=== PATIENT | female | born 1950 | race African-American/Black ===

== ENCOUNTER 2017-01-23 07:21 | Day surgery (SDC) | payer MEDICARE, OTHER ==
[2017-01-23] VITALS (11 sets, daily range): BP systolic 141–192; BP diastolic 55–76; PULSE 56–90; RESP 17–19; Ht 162.6 cm; Wt 124.0 kg
[~2017-01-23] VITALS: Ht 162.6 cm; Wt 124.0 kg
[2017-01-23] MEDS ORDERED: LISI10TA2 PO (09:11)
[2017-01-23] MEDS ORDERED: ALBU18HF INHALATION (09:12)
[2017-01-23] MEDS ORDERED: ASPI-664 PO (09:12)
[2017-01-23] MEDS ORDERED: NAPR-688 PO (09:13)
[2017-01-23] MEDS ORDERED: TRAM-40 PO (09:14)
--- NOTE | 2017-01-23 10:08 | RADRPT ---
PROCEDURE: Chest Radiograph. CLINICAL INDICATION: Preop TECHNIQUE: Single frontal chest radiograph. COMPARISON: None available FINDINGS: Heart size is within normal limits. Atherosclerotic calcifications are present. No infiltrate or effusion is seen. The bones are intact. IMPRESSION: 1. No evidence of acute cardiopulmonary disease. 2. Atherosclerotic vascular disease. RPTAT: KK .Darius Dooley MD, MD Date Time Electronically viewed and signed by .Darius Dooley MD, on 01/23/2017 10:07 .B/
[2017-01-23 10:11] LABS: ADD SCAN DIFF NO
[2017-01-23 10:16] LABS: BASOPHILS % 0.7 % (0.0-2.0); EOSINOPHILS # 0.3 10^3/ul (0.0-0.5); EOSINOPHILS % 5.6 % (0.0-7.0); HEMATOCRIT 40.1 % (37.0-47.0); HEMOGLOBIN 12.7 g/dl (12.0-16.0); LYMPHOCYTES # 1.8 10^3/ul (0.8-2.9); LYMPHOCYTES % 30.2 % (15.0-51.0); MEAN CORPUSCULAR HEMOGLOBIN 28.7 pg (29.0-33.0); MEAN CORPUSCULAR HGB CONC 31.7 g/dl (32.0-37.0); MEAN CORPUSCULAR VOLUME 90.5 fl (82.0-101.0); MEAN PLATELET VOLUME 10.9 fl (7.4-10.4); MONOCYTE # 0.4 10^3/ul (0.3-0.9); MONOCYTES % 7.3 % (0.0-11.0); NEUTROPHIL # 3.3 10^3/ul (1.6-7.5); NEUTROPHILS % 55.9 % (39.0-77.0); PLATELET COUNT 279 10^3/UL (140-415); RED BLOOD COUNT 4.43 10^6/ul (4.20-5.40); RED CELL DISTRIBUTION WIDTH 14.9 % (11.5-14.5); WHITE BLOOD COUNT 5.9 10^3/ul (4.8-10.8)
[2017-01-23 10:26] LABS: INR 0.87; PROTIME 11.8 Sec (12.2-14.2); PT RATIO 0.9
[2017-01-23] MEDS ORDERED: HEPARIN 1000 UNITS/ML 10 ML INJ ONE (10:26)
[2017-01-23] MEDS ORDERED: IODIXANOL LOCM 100 ML BTL ONE (10:26)
[2017-01-23] MEDS ORDERED: LIDOCAINE 1% (MDV) 20 ML INJ ONE (10:26)
[2017-01-23] MEDS ORDERED: HEPARIN 1000 UNITS/NS (A-LINE) 1,000 ML ONE (10:26)
[2017-01-23 10:27] LABS: PARTIAL THROMBOPLASTIN TIME 31.6 Sec (25.0-35.0)
[2017-01-23] MEDS ORDERED: NITROGLYCERIN (IC) 100 MCG/ML INJ ONE (10:27)
[2017-01-23] MEDS ORDERED: MIDAZOLAM 1 MG/ML 2 ML INJ ONE ×2 (10:27→14:14)
[2017-01-23] MEDS ORDERED: FENTAnyl 50 MCG/ML VIAL ONE ×2 (10:27→14:15)
[2017-01-23] MEDS ORDERED: VERAPAMIL 5 MG INJ ONE (10:27)
[2017-01-23 10:33] LABS: POTASSIUM 4.8 mmol/L (3.5-5.1)
[2017-01-23 10:38] LABS: CALCIUM 9.3 mg/dl (8.4-10.2); CREATININE 0.75 mg/dl (0.44-1.00)
[2017-01-23] MEDS ORDERED: SOD CHLORIDE 0.9% 1,000 ML IV SCH (12:00)
[2017-01-23] MEDS ORDERED: CEFAZOLIN 2 GM/50 ML (PMX) 50 ML IVPB ONE (12:00)
[2017-01-23] MEDS ORDERED: ISOSULFAN BLUE 1% 5 ML INJ SC ONE (14:05)
[2017-01-23] MEDS ORDERED: PROPOFOL 20 ML ONE (14:14)
[2017-01-23] MEDS ORDERED: METOCLOPRAMIDE 10 MG INJ ONE (14:14)
[2017-01-23] MEDS ORDERED: OXYCODONE/ACETAMINOPHEN (5/325) TAB PO PRN ×3 (15:00→18:00)
[2017-01-23] MEDS ORDERED: MEPERIDINE 25 MG INJ IV PRN (15:00)
[2017-01-23] MEDS ORDERED: DIPHENHYDRAMINE 50 MG INJ IV PRN (15:00)
[2017-01-23] MEDS ORDERED: METOCLOPRAMIDE 10 MG INJ IV PRN (15:00)
[2017-01-23] MEDS ORDERED: hydrALAzine 20 MG INJ IV PRN (15:00)
[2017-01-23] MEDS ORDERED: LABETALOL HCL 20MG INJ IV PRN (15:00)
[2017-01-23] MEDS ORDERED: ONDANSETRON 4 MG INJ IV PRN (15:00)
[2017-01-23] MEDS ORDERED: HYDROmorphONE (0.2 MG/ML) 10ML SYG IV PRN ×3 (15:00)
[2017-01-23] MEDS ORDERED: CEFAZOLIN 1 GM INJ ONE (15:06)
[2017-01-23] MEDS ORDERED: ONDANSETRON 4 MG INJ ONE (15:06)
[2017-01-23] MEDS ORDERED: hydrALAzine 20 MG INJ ONE (15:51)
--- NOTE | 2017-01-23 16:09 | OPR ---
DATE OF OPERATION: 01/23/2017 PREOPERATIVE DIAGNOSIS: Invasive cancer, left breast. POSTOPERATIVE DIAGNOSIS: Invasive cancer, left breast. OPERATION PERFORMED: Needle-directed left partial mastectomy and axillary dissection utilizing sent inel lymph node technique. ANESTHESIA: General. ANESTHESIOLOGIST:Siddhartha MD SURGEON: Bruno Robles MD METAL CEILING BUILDER: Armando Chowdhury MD INDICATIONS FOR PROCEDURE: The patient is a pleasant 66-year-old female who underwent surveillance mammography. She was found to have a suspicious lesion in the upper outer quadrant of her left mart[address]. Subsequent biopsy confirmed an invasive cancer. She was counseled as to risks versus benefits of partial mastectomy and sentinel lymph node biopsy. She consented and was scheduled for surgery. DESCRIPTION OF PROCEDURE: On the morning of surgery, the patient presented to [facility] where she underwent localization of the lesion performed by attending radiologi st, Dr. Mely Garcia. Subsequently, she was brought to the operating theater, placed under gener al anesthesia. The left breast and axillary regions were prepped and draped in the usual sterile fa shion. Approximately 4 mL of 1% Lymphazurin blue dye were then injected peritumorally. The breast was gently massaged for approximately 12 minutes. At this point, a 3 cm incision was made in the le ft axillary hairline. Subcutaneous tissue was dissected with cautery down through the clavipectoral fascia. A dye-stained lymphatic was identified and traced to a relatively enlarged lymph node. Th is node and several other lymph nodes in the area were then resected using the LigaSure device. Int raoperative analysis performed by attending pathologist, Dr. Jerry Herbert, did not reveal definit e evidence of metastatic disease. Therefore, the wound was irrigated and minimal bleeding was contr olled with cautery. The skin incision was then reapproximated with 4-0 Vicryl suture in subcuticula r fashion. Attention was then directed to performing the partial mastectomy. A curvilinear incision was made i n the upper outer quadrant near the previously placed localization wire. Subcutaneous tissue was di ssected with cautery. Skin edges were elevated with skin hooks and wide circumferential dissection of the tissue associated with the wire took place, taking great care to ensure adequate margin. Spe cimen was transected, oriented, and sent for radiographic confirmation of capture. Capture was conf irmed. Specimen was then sent for permanent pathologic analysis. The wound was irrigated. Minimal bleeding was controlled with cautery, and the skin was then reapproximated with 4-0 Vicryl suture i n subcuticular fashion. Benzoin and Steri-Strips were then applied to both wounds. The patient tabitha erated procedure well. Estimated blood loss was 20 mL. There were no complications and the patient was transported in stable condition to the recovery room where circumferential compression dressing was applied. Dictated By: BRUNO FLORES/TOPHER Conf#: [id number] DID#: [id number]
--- NOTE | 2017-01-24 20:57 | RADRPT ---
Vent Rate: 50 bpm RR Interval: 0 msec DE Interval: 160 msec QRS Duration: 76 msec QT Interval: 450 msec QTC Interval: 410 msec P-R-T Dike: 63 - 48 - 54 degrees Sinus bradycardia Otherwise normal ECG Electronically Signed By: Ba Montiel [id number]
== END 2017-01-23 18:16 | disposition home or self-care (01) ==
LOC: SDS 07:21
PROVIDERS: ATTEND Surgery Surgical Oncology
DX: C50.912 Malignant neoplasm of unspecified site of left female breast (principal); I10 Essential (primary) hypertension; E66.01 Morbid (severe) obesity due to excess calories; Z68.42 Body mass index [BMI] 45.0-49.9, adult
CPT/HCPCS: 19301; 38500; 38792; 71010; 80048; 85025; 85610; 85730; 88104; 88307; 93005; J0360; J0690; J1644; J2250; J2405; J2765; J3010; Q9967; Q9968

== ENCOUNTER 2017-03-13 15:30 | Emergency (ER) | payer MEDICARE, OTHER ==
[~2017-03-13] VITALS: Wt 121.0 kg
[~2017-03-13 15:30] MED LIST: ALBU18HF INHALATION; ASPI-664 PO; LISI10TA2 PO; NAPR-688 PO; TRAM-40 PO
[2017-03-13] MEDS ORDERED: ALBUTEROL 0.083% (NEB) 2.5 MG/3 ML AMP HHN STA (16:15)
[2017-03-13] MEDS ORDERED: METHYLPREDNISOLONE 125 MG INJ IM ONE (16:30)
[2017-03-13] MEDS ORDERED: IPRATROPIUM (NEB) 0.5 MG/2.5 ML AMP HHN ONE (16:30)
--- NOTE | 2017-03-13 17:24 | RADRPT ---
PROCEDURE: XR Chest. CLINICAL INDICATION: Shortness of breath TECHNIQUE: Chest AP portable. COMPARISON: No comparison available. FINDINGS: The mediastinal structures are unremarkable. There is calcification of the thoracic aorta (consiste nt with atherosclerosis). There is mild cardiomegaly. The pulmonary vascularity is normal. The alfonzo ng jung are unremarkable. No consolidation is identified. The pleural spaces are unremarkable. There are senescent changes of the axial skeleton. IMPRESSION: Calcification of the thoracic aorta (consistent with atherosclerosis) Mild cardiomegaly No active intrathoracic disease RPTAT: HGDB .Uriel Melvin MD, Date Time Electronically viewed and signed by .Uriel Melvin MD, on 03/13/2017 17:24 .B/
[2017-03-13] MEDS ORDERED: PRED20TA PO (18:10)
[2017-03-13] MEDS ORDERED: AZIT250T94 PO (18:10)
[2017-03-13] MEDS ORDERED: ALBU18HF INHALATION (18:10)
--- NOTE | 2017-03-13 18:15 | ERD ---
ER Documentation Chief Complaint Date/Time DATE: 03/13/17 TIME: 18:11 Chief Complaint COUGH, WHEEZING, HX OF ASTHMA HPI 66-year-old female presents with cough and wheezing for last 3 days. She has a history of asthma is giving herself treatments of albuterol at home. She denies any recent URIs, fevers, chest pain. Patient is concerned she might have walking pneumonia as she had before. ROS All systems reviewed and are negative except as per history of present illness. Medications Home Meds Active Scripts Albuterol Sulfate* (Ventolin HFA*) 18 Gm Hfa.aer.ad, 2 PUFF INHALATION Q4H, #1 INHALER Prov:BRYAN BENDER MD 03/13/17 Azithromycin* (Zithromax*) 250 Mg Tablet, 250 MG PO .ZPACK DIRECTED, #6 TAB TAKE 500 MG (2 TABS) THE FIRST DAY THEN 250 MG (1 TAB) DAYS 2-5 Prov:BRYAN BENDER MD 03/13/17 Prednisone* (Prednisone*) 20 Mg Tab, 60 MG PO DAILY for 6 Days, TAB 60 mg by mouth for 3 days then 40 mg by mouth for 3 days Prov:BRYAN BENDER MD 03/13/17 Reported Medications Tramadol Hcl* (Ultram*) 50 Mg Tablet, 50 MG PO Q8 Y for PAIN, TAB 01/23/17 Naproxen* (Naproxen*) 500 Mg Tablet, 500 MG PO BID Y for PAIN, TAB 01/23/17 Albuterol Sulfate* (Ventolin HFA*) 18 Gm Hfa.aer.ad, 2 PUFF INHALATION Q6H, #1 INHALER 01/23/17 Aspirin (Low Dose Aspirin) 81 Mg Tablet.dr, 81 MG PO DAILY, #30 TAB 01/23/17 Lisinopril* (Lisinopril*) 10 Mg Tablet, 10 MG PO DAILY, #30 TAB 01/23/17 Allergies Allergies: Coded Allergies: No Known Drug Allergies (Unverified Allergy, Unknown, 01/23/17) PMhx/Soc History of Surgery: No Anesthesia Reaction: No Hx Neurological Disorder: No Hx Respiratory Disorders: No Hx Cardiac Disorders: Yes (HTN) Hx Psychiatric Problems: No Hx Miscellaneous Medical Probl: Yes Hx Alcohol Use: No Hx Substance Use: No Hx Tobacco Use: No Smoking Status: Never smoker Physical Exam Vitals Vital Signs Date Time Temp Pulse Resp B/P Pulse Ox O2 Delivery O2 Flow Rate FiO2 03/13/17 16:36 59 19 99 21 03/13/17 15:35 97.2 59 18 159/70 100 Physical Exam Const: [] Alert, [id number] Head: Atraumatic Eyes: Normal Conjunctiva ENT: Normal External Ears, Nose and Mouth. Neck: Full range of motion..~ No meningismus. Resp: Clear to auscultation bilaterally. Diffuse wheezing without rales or retractions appreciated. Cardio: Regular rate and rhythm, no murmurs Abd: Soft, non tender, non distended. Normal bowel sounds Skin: No petechiae or rashes Back: No midline or flank tenderness Ext: No cyanosis, or edema. No calf swelling, or Homans sign. Neur: Awake and alert Psych: Normal Mood and Affect Results 24 hrs Current Medications Medications (Trade) Dose Ordered Sig/[place] Route PRN Reason Start Time Stop Time Status Last Admin Dose Admin Methylprednisolone Sodium Succinate (Solu-Medrol) 125 mg ONCE ONCE IM 03/13/17 16:30 03/13/17 16:31 DC 03/13/17 17:21 Albuterol (Proventil 0.083% (Neb)) 5 mg ONCE STAT HHN 03/13/17 16:15 03/13/17 16:17 DC 03/13/17 16:35 Ipratropium [place] (Atrovent 0.02% (Neb)) 0.5 mg ONCE ONCE HHN 03/13/17 16:30 03/13/17 16:31 DC 03/13/17 16:35 Procedures/MDM Chest X-ray 1V Interpreted by me: Soft Tissue: No acute abnormalities Bones: No acute abnormalities Mediastinum/Cardiac Silhouette/Lungs: [No acute abnormalities]. Impression- normal 1 view chest x-ray EKG: Rate/Rhythm: [Normal Sinus Rhythm] rate equals 56 QRS, ST, T-waves: [No changes consistent w/ acute ischemia] Impression: [No evidence of ischemia or arrhythmia] impression-no acute findings on EKG Patient presents with wheezing for the last 3 days. She is given albuterol and Atrovent treatment as well as Solu-Medrol 125 mg IM. Patient has signs and symptoms of acute asthma exacerbation without evidence of pneumonia, hypoxia, respiratory distress, acute coronary syndrome, PE, CHF, aortic dissection, additional causes of presenting complaints. She will treated with a course of prednisone and continuation of albuterol as well as Zithromax. The patient was stable with no new complaints during the ER course. Clinically, there is no current evidence to suggest meningitis, sepsis, acute abdomen, pneumonia, acute coronary syndrome, pulmonary embolism, or any other emergent condition appearing to require further evaluation or hospitalization. The patient should certainly return for any new or worsening symptoms per the aftercare instructions. They should otherwise follow-up with her primary care doctor for reevaluation this week. Departure Diagnosis: Primary Impression: Wheezing Condition: Stable Patient Instructions: Asthma, Bronchitis With Wheezing (Adult) Additional Instructions: X-ray and EKG normal. We will treat for bronchitis. Recheck for new or worsening symptoms or primary care doctor. BRYAN BENDER MD Mar 13, 2017 18:15
[2017-03-13 19:13] VITALS: BP 130/66; PULSE 60; RESP 20; TEMP 98.2
== END 2017-03-13 19:14 | disposition home or self-care (01) ==
LOC: FTE 15:30
DX: R06.2 Wheezing (principal); I10 Essential (primary) hypertension; Z79.82 Long term (current) use of aspirin
CPT/HCPCS: 71010; 93005; 94664; J2930; 96372